=== PATIENT | male | born 1995 | race Caucasian/White ===

== ENCOUNTER 2016-04-21 03:12 | Emergency (ER) | payer BC ==
--- NOTE | 2016-04-21 06:19 | ED ---
Leo Valencia Salem, scribed for Yevgeniy Yoder MD on 04/21/16 at 0319 . Substance Abuse/Use - HPI Summary HPI Summary: Patient is a 20 y/o male who presents to the ED per EMS with EtOH intoxication. He was in a friends apartment vomiting when friends called EMS. He denies using any other drugs, but EMS reports he consumed hard EtOH. He reports no other sx. - History Of Current Complaint Chief Complaint: EDSubstanceAbuse Stated Complaint: ETOH Hx Obtained From: Patient, EMS Onset/Duration of Drug/ETOH Abuse: Hours Overdose Characteristics: Oral Severity Initially: Moderate Severity Currently: Moderate Aggravating Factor(s): Nothing Alleviating Factor(s): Nothing Associated Signs And Symptoms: Vomiting - Allergies/Home Medications Allergies/Adverse Reactions: Allergies Allergy/AdvReac Type Severity Reaction Status Date / Time Peanut-containing Drug Allergy Rash Verified 04/21/16 03:17 Products Tree Nuts Allergy Unknown Verified 04/21/16 03:17 Reaction Details seafood Allergy Rash Uncoded 04/21/16 03:17 PMH/Surg Hx/FS Hx/Imm Hx Endocrine/Hematology History: Denies: Hx Diabetes, Hx Thyroid Disease Cardiovascular History: Denies: Hx Hypertension Respiratory History: Denies: Hx Asthma, Hx Chronic Obstructive Pulmonary Disease (COPD) GI History: Denies: Hx Ulcer Infectious Disease History: Denies: Hx Hepatitis, Hx Human Immunodeficiency Virus (HIV) - Family History Known Family History: Negative: Hypertension - per EMR., Diabetes - per EMR. - Social History Alcohol Use: Rare Hx Substance Use: No Substance Use Type: Reports: None Hx Tobacco Use: No Smoking Status (MU): Never Smoked Tobacco Review of Systems Negative: Fever Positive: Vomiting All Other Systems Reviewed And Are Negative: Yes Physical Exam Triage Information Reviewed: Yes Vital Signs On Initial Exam: Initial Vitals Temp Pulse Resp BP Pulse Ox 98.2 F 76 18 120/62 97 04/21/16 03:13 04/21/16 03:13 04/21/16 03:13 04/21/16 03:13 04/21/16 03:13 Vital Signs Reviewed: Yes Appearance: Positive: Well-Appearing, No Pain Distress Skin: Positive: Warm Head/Face: Positive: Normal Head/Face Inspection Eyes: Positive: TOBY ENT: Positive: Hearing grossly normal Neck: Positive: Supple Respiratory/Lung Sounds: Positive: Breath Sounds Present Cardiovascular: Positive: RRR Abdomen Description: Positive: Nontender, Soft Bowel Sounds: Positive: Present Musculoskeletal: Positive: Strength/ROM Intact Neurological: Positive: Sensory/Motor Intact Diagnostics - Vital Signs Vital Signs Temp Pulse Resp BP Pulse Ox 04/21/16 03:13 98.2 F 76 18 120/62 97 - Laboratory Lab Results: Lab Results 04/21/16 Range/Units 03:25 Serum Alcohol 252 H (<10) mg/dL Lab Statement: Any lab studies that have been ordered have been reviewed, and results considered in the medical decision making process. Re-Evaluation - Re-Evaluation First Eval Change: Improved Course/Dx - Diagnoses Provider Diagnoses: Alcohol intoxication Discharge - Discharge Plan Condition: Stable Disposition: HOME Discharge Disposition Comment: Sign out to Dr. Moore. Patient Education Materials: Alcohol Intoxication (ED) Referrals: [facility] BARRY Lazo [Primary Care Provider] - Additional Instructions: Follow up with PCP. The documentation as recorded by the Leo guidry Salem accurately reflects the service I personally performed and the decisions made by , Yevgeniy Yoder MD.
[2016-04-21 11:44] VITALS: BP 99/52
== END 2016-04-21 12:04 | disposition home or self-care (01) ==
LOC: ED 03:12
DX: F10.129 Alcohol abuse with intoxication, unspecified (principal); R11.10 Vomiting, unspecified; Y90.8 Blood alcohol level of 240 mg/100 ml or more
CPT/HCPCS: 36415; 80320; 99282; G0480